=== PATIENT | male | born 1985 | race African-American/Black ===

== ENCOUNTER 2017-03-23 10:03 | Day surgery (SDC) | payer MEDICARE, MEDICAID ==
[2017-03-22 18:39] VITALS: BMI 27.9
[2017-03-23 10:48] LABS: #Basophils 0.1 thou/uL (0.0-0.2); #Eosinphils 0.1 thou/uL (0.0-0.7); #Monocytes 1.4 thou/uL (0.11-0.59); #Neutrophils 9.4 thou/uL (1.40-6.50); %Basophils 0.4 % (0.0-1.0); %Eosinophils 0.4 % (0.0-10.0); %Lymphocytes 21.8 % (21.0-51.0); %Monocytes 10.3 % (0.0-10.0); Hematocrit 34.1 % (42.0-52.0); Mean Platelet Volume 7.6 fL (7.4-10.4); Red Blood Cell (RBC) Count 3.77 mill/uL (4.70-6.10)
[2017-03-23] MEDS ORDERED: CEFAZOLIN/Water 2 GM/20 ML SYRINGE ONE (10:54)
[2017-03-23 11:05] LABS: Anion Gap 19 mmol/L (10-20); BUN (Urea Nitrogen) 85 mg/dL (8.9-20.6); Calc. Creatinine Clearance 15 mL/min (70-130); Calcium 9.8 mg/dL (7.8-10.44); Carbon Dioxide 20 mmol/L (22-29); Chloride 106 mmol/L (98-107); Estimated GFR-MDRD 10
[2017-03-23] MEDS ORDERED: Protamine Sulfate 50 MG/5 ML VIAL ONE (11:07)
[2017-03-23] MEDS ORDERED: Heparin 5,000 UNITS/ML VIAL ONE (11:07)
[2017-03-23] MEDS ORDERED: Bupivacaine/Epinephrine 0.25% 30 ML VIAL ONE (11:07)
[2017-03-23] MEDS ORDERED: Sodium Chloride 0.9% 10 ML ONE (11:07)
[2017-03-23] MEDS ORDERED: Heparin 10,000 UNITS/1 ML VIAL ONE (11:07)
--- NOTE | 2017-03-23 11:37 | HP ---
HISTORY OF PRESENT ILLNESS: A 32-year-old black male who has left upper arm fistula that I placed o n 01/18/2017. Prior to that, he had a Makenzie fistula that thrombosed. The patient has not yet [facility], but last week, Dr. Klein asked them to start access in his left upper arm fistula. He suffered infiltration hematoma. The patient had an appointment to see me in the next 48 hours, b ut they called and stated he needed dialysis access and might need a fistulogram. Evaluation of his left upper arm fistula reveals that he has a good thrill and bruit. There is some hematoma in the distal upper arm. Plan is to place a hemodialysis catheter to allow his fistula more time to mature . We will plan that today. He has been n.p.o. The patient's Makenzie fistula was on 11/27/2016 and his left upper arm fistula was 01/18/2017. He is noted to have poor veins by ultrasound vein mapping, but underwent exploration and found to have an antecubital vein of left arm to be of very good caliber. MEDICATIONS: Furosemide 20 mg a day, amlodipine 10 mg a day, metoprolol 50 mg a day, hydralazine 10 0 mg 3 times a day, ranitidine 150 mg twice a day, clonidine 0.25 mg twice a day. PAST MEDICAL HISTORY: Gout, hypertension, chronic kidney disease. PAST SURGICAL HISTORY: Left Makenzie fistula on 11/27/2016, left primary fistula, proximal radial art brenda outflow cephalic vein on 01/18/2017. REVIEW OF SYSTEMS: Ten point noncontributory. PHYSICAL EXAMINATION: VITAL SIGNS: Blood pressure 134/96, pulse 68, temperature 96.4 degrees, , 65 inches. HEAD, EYES, EARS, NOSE, AND THROAT: Unremarkable. LUNGS: Clear to auscultation. CARDIAC: Regular rate and rhythm without murmur or gallop. ABDOMEN: Soft, nontender, no masses. EXTREMITIES: Unremarkable. Good fistula in left upper arm, good thrill and bruit, hematoma extrava sation in left upper arm, soft tissue. ASSESSMENT AND PLAN: Left arm cephalic vein fistula, needs more time to mature. Plan placement of a hemodialysis catheter. Risks and benefits explained and they consent. I will see him back in the second week in April to evaluate his left arm fistula.
[2017-03-23] MEDS ORDERED: Fentanyl 100 MCG/2 ML VIAL ONE (11:54)
[2017-03-23] MEDS ORDERED: Lidocaine 2% PF 10 ML AMP (For Epidural Use) ONE (12:57)
[2017-03-23] MEDS ORDERED: Propofol 200 MG/20 ML VIAL ONE (12:57)
--- NOTE | 2017-03-23 13:56 | OP ---
DATE OF PROCEDURE: 03/23/2017 PREOPERATIVE DIAGNOSIS: End-stage renal disease, immature left arm fistula in need of dialysis acce ss. POSTOPERATIVE DIAGNOSIS: End-stage renal disease, immature left arm fistula in need of dialysis acc ess. PROCEDURE: Right IJ cuffed tunnel dialysis catheter, ultrasound fluoroscopy used angiodynamics prec urved. SURGEON: Dr. London Singh ANESTHESIA: Intravenous sedation and local 0.5% Marcaine, 30 mL, mixed with 2% Xylocaine with epine phrine 10 mL. PROCEDURE IN DETAIL: The patient was taken to the operating room where under intravenous sedation, neck and chest were prepared with ChloraPrep, draped in routine fashion. Local anesthetic infiltrat ed into skin and subcutaneous tissue about the operative site. Under ultrasound guidance, the right internal jugular vein was cannulated with trocar catheter. J-wire threaded, trocar catheter remove d. Skin incised and enlarged sharply. Stab incision made right chest. Using the tunneling device, the precurved angiodynamics cuffed tunnel hemodialysis catheter tunneled between the two incisions, placing the fabric cuff just beneath the skin exit site and catheter secured with 2 interrupted sut ures of 3-0 nylon. Smaller and medium sized dilators placed over the J-wire into the internal jugul ar vein and removed. Dilator and pull-away sheath placed over the J-wire into the superior vena cav a and dilator and J-wire removed. Catheter placed with pull-away sheath; pull-away sheath removed. Fluoroscopically, catheter noted to be in good position. Platysma approximated with 4-0 Monocryl, skin with subdermal 4-0 Monocryl and DermaGlue applied. Each port aspirated blood and flushed with saline solution and then heparinized saline solution 1000 units heparin per mL indicated volume of t he port. Fluoroscopic images revealed good line placement.
--- NOTE | 2017-03-23 15:45 | RAD ---
EXAM: ONE VIEW CHEST 03/23/17 HISTORY: Dialysis catheter placement. Chest catheter position. COMPARISON: None. FINDINGS: Right sided hemosplit dialysis catheter with the distal tip projecting over the SVC/right atrial dominga ction. No pneumothorax. Lung volumes are diminished, likely due to poor inspiratory effort. No conso lidation or mass. No pneumothorax or osseous abnormality. Normal cardiac silhouette. IMPRESSION: Right sided hemosplit dialysis catheter as above. POS: [facility]ER
== END 2017-03-23 14:45 | disposition home or self-care (01) ==
LOC: SDC 10:03
PROVIDERS: ATTEND Specialist
PROC: 05HM33Z Insertion of Infusion Device into Right Internal Jugular Vein, Percutaneous Approach (ICD-10-PCS; principal; 2017-03-23)
PROC: B513ZZA Fluoroscopy of Right Jugular Veins, Guidance (ICD-10-PCS; 2017-03-23)
DX: I12.0 Hypertensive chronic kidney disease with stage 5 chronic kidney disease or end stage renal disease (principal); N18.6 End stage renal disease; M10.9 Gout, unspecified; Z79.891 Long term (current) use of opiate analgesic; Z79.52 Long term (current) use of systemic steroids; Z79.899 Other long term (current) drug therapy; Z98.890 Other specified postprocedural states
CPT/HCPCS: 36561; 71010; 80048; 85025; C1752; C1769; 36415; A4216; J1644; J2001; J2704; J2720; J3010